=== PATIENT | female | born 1995 | race American Indian/Alaskan Native ===

== ENCOUNTER 2019-06-10 05:42 | Emergency (ER) | payer SELFPAY ==
[2019-06-10 06:09] VITALS: BP 136/89
[2019-06-10] MEDS ORDERED: BENADRYL ONE (06:09)
[2019-06-10] MEDS ORDERED: DECADRON ONE (06:09)
[2019-06-10] MEDS ORDERED: PEPCID IV ONE ×2 (06:10→06:22)
[2019-06-10] MEDS ORDERED: DECADRON IM ONE (06:22)
[2019-06-10] MEDS ORDERED: BENADRYL IM ONE (06:24)
[2019-06-10] MEDS ORDERED: PEPCID PO ONE (07:33)
--- NOTE | 2019-06-10 07:35 | Emergency Department Report ---
ED Rash HPI - HPI Chief Complaint: Allergic Reaction Stated Complaint: ASTHMA WITH COUGH POSSIBLE ALLERGIC POSSIBLE Time Seen by Provider: 06/10/19 07:27 Location: Lower Extremities, Other (buttocks) Suspected Cause: Unknown Rash Symptoms: Yes Itching, No Facial Swelling, No Tongue/Oral Swelling, No Breathing Difficulties, No Choking Sensation, No Wheezing/Dyspnea, No Peeling, No Blistering, No Fever, No Lightheaded, No Malaise, No Myalgias Severity: moderate Other History: This 23-year-old female who presents to the ED complaining of hives and itching to her lower extremities and buttocks area times yesterday. Patient states that this is following intermittently since September of last year. Patient is not aware of any contact or food allergens she could be allergic to. He denies difficulty breathing or swallowing or any of the symptoms ED Review of Systems ROS: Stated complaint: ASTHMA WITH COUGH POSSIBLE ALLERGIC POSSIBLE Other details as noted in HPI Comment: All other systems reviewed and negative ED Past Medical Hx - Past Medical History Previous Medical History?: Yes Hx Asthma: Yes - Surgical History Past Surgical History?: No - Social History Smoking Status: Never Smoker - Medications Home Medications: Home Medications Medication Instructions Recorded Confirmed Last Taken Type Famotidine [Pepcid] 20 mg PO BID #10 tablet 06/10/19 Unknown Rx Pramoxine HCl/Calamine [Calamine 1 applic TP DAILY #1 lotion 06/10/19 Unknown Rx Medicated Lotion] hydrOXYzine HCL [Atarax] 25 mg PO Q6HR PRN #20 tablet 06/10/19 Unknown Rx methylPREDNISolone [Medrol 4MG 4 mg PO DAILY #1 tab.ds.pk 06/10/19 Unknown Rx DOSEPAK (21 tabs)] Rash Exam - Exam General: Vital signs noted. No distress. Alert and acting appropriately. HEENT: No Periorbital Edema, No Conjuctival Injection, No Chemosis, No Perioral Edema, No Tongue Edema, No Uvular Edema, No Compromised Airway, No Drooling Lungs: Yes Good Air Exchange (Normal Breath Sounds), No Wheezes, No Ronchi, No Stridor, No Cough, No Labored Respirations, No Retractions, No Use of Accessory Muscles, No Other Abnormal Lung Sounds Heart: Yes Regular, No Murmur Skin: Yes Urticarial Rash, Yes Maculopapular Rash (hives on inner thighs), Yes Erythema (slightly), No Morbilliform rash, No Bulla(e), No Excoriations, No Weeping, No Tenderness, No Edema, No Encrustations, No Other Other: Positive: Abdomen Normal, Neurologic Normal, Musculoskeletal Normal ED Course Vital Signs 06/10/19 05:54 Temperature 97.9 F Pulse Rate 103 H Respiratory 16 Rate Blood Pressure 136/89 O2 Sat by Pulse 100 Oximetry ED Medical Decision Making - Medical Decision Making 23-year-old female presents with a contact/allergic dermatitis Patient received Decadron, Benadryl and Pepcid during the ED stay. Discussed with patient has generally goes away within a week. Discussed patient may continue the allergy and is removed. Discussed patient to make sure she increase of hydration She'll be sent home on Atarax and antihistamine to help with itching, calamine lotion for topical itching and short course Medrol Dosepack Vital signs are normal she is in no acute or respiratory distress Discussed follow-up with primary care physician. Critical care attestation.: If time is entered above; I have spent that time in minutes in the direct care of this critically ill patient, excluding procedure time. ED Disposition Clinical Impression: Contact dermatitis, Hives of unknown origin Disposition: [id number] TO HOME OR SELFCARE Is pt being admited?: No Does the pt Need Aspirin: No Condition: Stable Instructions: Urticaria (ED), Contact Dermatitis (ED) Additional Instructions: Make sure to follow up with the primary care physician as discussed. Take all your medications as you've been prescribed. If you have any worsening symptoms or develop new symptoms please return to ED immediately. Prescriptions: hydrOXYzine HCL [Atarax] 25 mg PO Q6HR PRN #20 tablet PRN Reason: Itching Pramoxine HCl/Calamine [Calamine Medicated Lotion] 1 applic TP DAILY #1 lotion methylPREDNISolone [Medrol 4MG DOSEPAK (21 tabs)] 4 mg PO DAILY #1 tab.ds.pk Famotidine [Pepcid] 20 mg PO BID #10 tablet Referrals: [facility] [employer] [facility] [Provider Group] - 3-5 Days [facility] [Outside] - 3-5 Days [facility] [Outside] - 3-5 Days Forms: Accompanied Note, Work/School Release Form(ED) Time of Disposition: 07:50
== END 2019-06-10 08:01 | disposition home or self-care (01) ==
LOC: ED 05:42
DX: L25.9 Unspecified contact dermatitis, unspecified cause (principal); L50.9 Urticaria, unspecified; J45.909 Unspecified asthma, uncomplicated
CPT/HCPCS: 96372; 96374; 99282; J1100; J1200